=== PATIENT | female | born 1970 | race Caucasian/White ===

== ENCOUNTER 2018-09-24 08:31 | Emergency (ER) | payer MEDICAID ==
[~2018-09-24] VITALS: Ht 162.6 cm; Wt 89.4 kg
[2018-09-24 08:40] VITALS: BP 141/84; Ht 162.6 cm; Wt 89.4 kg
== END 2018-09-24 09:14 | disposition home or self-care (01) ==
LOC: ED 08:31
DX: B02.9 Zoster without complications (principal); I10 Essential (primary) hypertension; Z88.0 Allergy status to penicillin